=== PATIENT | male | born 1950 | race Caucasian/White ===

== ENCOUNTER 2022-02-03 09:01 | Outpatient (CLI) | payer OTHER, SELFPAY ==
[2022-02-03] VITALS (9 sets, daily range): BP systolic 128–174; BP diastolic 74–97; PULSE 40–72; RESP 11–19; TEMP 36.4; O2SAT 98–100
--- NOTE | 2022-02-03 09:07 | DI.RAD.S_ITS ---
PROCEDURE: PAIN C/T INTERLAMINAR INJECT INDICATIONS: SPINAL STENOSIS COMPARISON: [facility], MR, MR CERVICAL SPINE WITHOUT CONTRAST, 08/02/2020, 13:48. [facility], CR, XR CERVICAL SPINE 2 OR 3 VIEWS, 03/18/2021, 13:29. FINDINGS: Fluoroscopic spot filming was performed to verify placement of a spinal needle at the C6-C7 level, as labeled on the films. Appropriate location of the needle tip was confirmed by injection of iodinated contrast. IMPRESSION: No significant intraprocedural abnormality. Dictated by: Selvin Tamez M.D. on 02/03/2022 at 10:32 Approved by: Selvin Tamez M.D. on 02/03/2022 at 10:32
[2022-02-03] MEDS: MIDAZOLAM 2 MG/2 ML VIAL IV (10:43)
[2022-02-03] MEDS: DEXAMETHASONE 10 MG/ML VIAL 30 MG INJ (10:47)
[2022-02-03] MEDS: BUPIVACAINE 0.25% (PF) VIAL 2 ML INJ (10:47)
[2022-02-03] MEDS: IOPAMIDOL 15 ML VIAL 3 ML INJ (10:47)
--- NOTE | 2022-02-03 11:09 | P.PCN_ITS ---
Date/Time/Diagnoses Date of procedure: 02/03/22 Time of procedure: 11:09 Pre-procedure diagnosis: 1. CERVICAL STENOSIS, 2. CERVICAL HNP WITH UPPER EXTREMITY RADICULAR FEATURES Post-procedure diagnosis: same Procedure Notes Procedure: 1. FLUORSCOPICALLY GUIDED CONTRAST CONTROLLED INTERLAMINAR EPIDURAL STEROID INJECTION - C6/7 TL SCOTT Indications: Rommel is referred by Dr. Pacheco for the treatment of Cervical HNP with Upper Extremity Paresthesias. Physician: Skip Diaz Total Fluoroscopy time (seconds): 39 Total sedation minutes: 19 Complications: none Procedure in detail & Post-procedure care: FINDINGS Cervical Stenosis due to disc deterioration and nerve root irritation and nerve root irritation DESCRIPTION OF PROCEDURE Fluoroscopically guided, contrast-controlled C6/7 translaminar epidural steroid injection with conscious sedation. Following review of allergy and review of potential side effects and complications, including, but not necessarily limited to, infection, allergic reaction, local tissue breakdown, temporary as well as permanent nerve injury, stroke, paralysis, and possible , the patient indicated that patient understood and agreed to proceed. An informed consent document was signed by the patient, witnessed by a nurse, and placed in the patient's chart. Additionally, other treatment options including modalities, medications, and physical therapy were reviewed with the patient. After review of previous anaesthesic history and IV conscious sedation the patient was deemed safe to proceed with today?s procedure with IV conscious se dation as ASA class II designation. Safety time-out was performed to confirm patient ID, procedure to be performed and site of procedure. IV sedation was accomplished with a combination of 2mg of Versed administered by the RN after DO order, titrated to patient comfort during the course of the procedure while the patient remained responsive to all verbal commands. In the prone position, following sterile prep and drape of the cervical region, the C6/7 translaminar space was identified fluoroscopically. The skin was anesthetized via a 25-gauge 1.5-inch needle with 1% lidocaine solution. At this point, a 25-gauge, 2.5-inch short bevel spinal needle was atraumatically introduced and advanced under fluoroscopic guidance into epidural space at the C6/7 translaminar space. Depth was confirmed on lateral view. Radiological data, including multiple fluoroscopic views of the cervical spine, reveal a spinal needle at the C6/7 translaminar space. Lateral views then show placement of the needle in the epidural space. Subsequent views show contrast material flowing superiorly and inferiorly in the epidural space. DSA fluoroscopy with live contrast injection, once again, confirmed no vascular or intrathecal uptake. At this point, using loss of resistance technique with saline and air, the epidural space was entered. Following negative aspiration, injection of approximately 1.5 cc of Isovue-200 with live fluoroscopy in the AP view confirmed epidural flow in the epidural space without vascular or intrathecal uptake observed. Subsequently, a test dose of 1 cc of 1% lidocaine solution was injected and patient was observed for two minutes without signs or symptoms of complications, including abdominal pain, shortness of breath, bilateral upper or lower extremity weakness, nausea and vomiting, prior to steroid injection. At this point, 3cc or 30mg of dexamethasone was then injected without incident. The patient tolerated the procedure well without signs or symptoms of c omplications prior to being transferred to the recovery area for further monitoring, The patient was then transferred to the recovery area where they were observed for an appropriate period of time after the injection. The patient reported a VAS score of 6 prior to the procedure and a post-procedure VAS of 0. POST OP INSTRUCTIONS The patient was provided a Pain Log to continue to record their response to the target-specific procedure prior to follow-up visit with the referring provider. Additionally, specific post-injection care instructions and a contact number to our office were provided if concerns arise regarding possible complications associated with the procedure are suspected.
== END 2022-02-03 11:29 | disposition home or self-care (01) ==
LOC: RAD 09:06
PROVIDERS: Referring Provider Physical Medicine & Rehabilitation; Visit Provider Physical Medicine & Rehabilitation
DX: M48.02 Spinal stenosis, cervical region (principal); M50.123 Cervical disc disorder at C6-C7 level with radiculopathy
CPT/HCPCS: 62321; 99152; J1100; J2250; J3490

== ENCOUNTER 2022-05-12 08:55 | Outpatient (CLI) | payer OTHER, SELFPAY ==
[2022-05-12] VITALS (9 sets, daily range): BP systolic 119–160; BP diastolic 73–96; PULSE 68–75; RESP 10–20; TEMP 36.5; O2SAT 95–99
--- NOTE | 2022-05-12 08:58 | DI.RAD.S_ITS ---
PROCEDURE: PAIN C/T INTERLAMINAR INJECT INDICATIONS: Radiculopathy, cervical region COMPARISON: [facility], , PAIN C/T INTERLAMINAR INJECT, 02/03/2022, 10:46. FINDINGS: Fluoroscopic spot filming was performed to verify placement of a spinal needle at the C6-C7 level, as labeled on the films. Appropriate location of the needle tip was confirmed by injection of iodinated contrast. IMPRESSION: No significant intraprocedural abnormality. Dictated by: Selvin Tamez M.D. on 05/12/2022 at 11:19 Approved by: Selvin Tamez M.D. on 05/12/2022 at 11:20
[2022-05-12] MEDS: IOPAMIDOL 15 ML VIAL 3 ML INJ (10:16)
[2022-05-12] MEDS: MIDAZOLAM 2 MG/2 ML VIAL 4 MG IV (10:18)
[2022-05-12] MEDS: DEXAMETHASONE 10 MG/ML VIAL 30 MG INJ (10:18)
[2022-05-12] MEDS: BUPIVACAINE 0.5% (PF) 10 ML VIAL 5 ML INJ (10:19)
--- NOTE | 2022-05-12 10:37 | P.PCN_ITS ---
Date/Time/Diagnoses Date of procedure: 05/12/22 Time of procedure: 10:37 Pre-procedure diagnosis: 1. CERVICAL STENOSIS, 2. CERVICAL HNP WITH UPPER EXTREMITY RADICULAR FEATURES Post-procedure diagnosis: same Procedure Notes Procedure: 1. FLUORSCOPICALLY GUIDED CONTRAST CONTROLLED INTERLAMINAR EPIDURAL STEROID INJECTION - C6/7 TL SCOTT Indications: Rommel is referred by Taj for treatment of Cervical HNP with Upper Extremity Paresthesias. Physician: Skip Diaz Total Fluoroscopy time (seconds): 32 Total sedation minutes: 17 Complications: none Procedure in detail & Post-procedure care: FINDINGS Cervical Stenosis due to disc deterioration and nerve root irritation and nerve root irritation DESCRIPTION OF PROCEDURE Fluoroscopically guided, contrast-controlled C6/7 translaminar epidural steroid injection with conscious sedation. Following review of allergy and review of potential side effects and complications, including, but not necessarily limited to, infection, allergic reaction, local tissue breakdown, temporary as well as permanent nerve injury, stroke, paralysis, and possible , the patient indicated that patient understood and agreed to proceed. An informed consent document was signed by the patient, witnessed by a nurse, and placed in the patient's chart. Additionally, other treatment options including modalities, medications, and physical therapy were reviewed with the patient. After review of previous anaesthesic history and IV conscious sedation the patient was deemed safe to proceed with today?s procedure with IV conscious sedation as ASA class II designation. Safety time-out was performed to confirm patient ID, procedure to be performed and site of procedure. IV sedation was accomplished with a combination of 4mg of Versed administered by the RN after DO order, titrated to patient comfort during the course of the procedure while the patient remained responsive to all verbal commands. In the prone position, following sterile prep and drape of the cervical region, the C6/7 translaminar space was identified fluoroscopically. The skin was anesthetized via a 25-gauge 1.5-inch needle with 1% lidocaine solution. At this point, a 25-gauge, 2.5-inch short bevel spinal needle was atraumatically introduced and advanced under fluoroscopic guidance into epidural space at the C6/7 translaminar space. Depth was confirmed on lateral view. Radiological data, including multiple fluoroscopic views of the cervical spine, reveal a spinal needle at the C6/7 translaminar space. Lateral views then show placement of the needle in the epidural space. Subsequent views show contrast material flowing superiorly and inferiorly in the epidural space. DSA fluoroscopy with live contrast injection, once again, confirmed no vascular or intrathecal uptake. At this point, using loss of resistance technique with saline and air, the epidural space was entered. Following negative aspiration, injection of approximately 1.5 cc of Isovue-200 with live fluoroscopy in the AP view confirmed epidural flow in the epidural space without vascular or intrathecal uptake observed. Subsequently, a test dose of 1 cc of 1% lidocaine solution was injected and patient was observed for two minutes without signs or symptoms of complications, including abdominal pain, shortness of breath, bilateral upper or lower extremity weakness, nausea and vomiting, prior to steroid injection. At this point, 3cc or 30mg of dexamethasone was then injected without incident. The patient tolerated the procedure well without signs or symptoms of complic ations prior to being transferred to the recovery area for further monitoring, The patient was then transferred to the recovery area where they were observed for an appropriate period of time after the injection. The patient reported a VAS score of 6 prior to the procedure and a post-procedure VAS of 0. POST OP INSTRUCTIONS The patient was provided a Pain Log to continue to record their response to the target-specific procedure prior to follow-up visit with the referring provider. Additionally, specific post-injection care instructions and a contact number to our office were provided if concerns arise regarding possible complications associated with the procedure are suspected.
== END 2022-05-12 10:52 | disposition home or self-care (01) ==
LOC: RAD 08:58
PROVIDERS: PCP Nurse Practitioner Family; Referring Provider Physical Medicine & Rehabilitation; Visit Provider Physical Medicine & Rehabilitation
DX: M48.02 Spinal stenosis, cervical region (principal); M50.123 Cervical disc disorder at C6-C7 level with radiculopathy
CPT/HCPCS: 62321; 99152; J1100; J2250; J3490

== ENCOUNTER → 2022-08-12 14:47 | Outpatient (CLI) | payer OTHER, SELFPAY ==
--- NOTE | 2022-08-12 14:50 | DI.RAD.S_ITS ---
PROCEDURE: XR KNEE RT 3V INDICATIONS: Knee DJD TECHNIQUE: 3 views of the knee were acquired. COMPARISON: None. FINDINGS: Bones: No fractures or dislocations. No suspicious bony lesions. Tricompartmental joint space narrowing with associated osteophytosis. Soft tissues: Small joint effusion. No suspicious soft tissue calcifications. 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 Dictated by: Arsh Rivers M.D. on 08/12/2022 at 16:17 Approved by: Arsh Rivers M.D. on 08/12/2022 at 16:19
--- NOTE | 2022-08-12 14:50 | DI.RAD.S_ITS ---
PROCEDURE: XR KNEE LT 3V INDICATIONS: Knee DJD TECHNIQUE: 3 views of the knee were acquired. COMPARISON: None. FINDINGS: Bones: No fractures or dislocations. No suspicious bony lesions. Tricompartmental joint space narrowing. Osteophytic lipping of the tibiofemoral compartments and formed osteophytes about the patella. Soft tissues: Small joint effusion. No suspicious soft tissue calcifications. IMPRESSION: Mild tricompartmental osteoarthritis. Kellgren-Amisha grade 1-2. Small knee joint effusion. Dictated by: Arsh Rivers M.D. on 08/12/2022 at 16:17 Approved by: Arsh Rivers M.D. on 08/12/2022 at 16:17
== END ==
PROVIDERS: PCP Nurse Practitioner Family; Referring Provider Physical Medicine & Rehabilitation; Visit Provider Physical Medicine & Rehabilitation
DX: M17.0 Bilateral primary osteoarthritis of knee (principal); M25.461 Effusion, right knee; M25.462 Effusion, left knee; M50.10 Cervical disc disorder with radiculopathy, unspecified cervical region; L29.8 Other pruritus
CPT/HCPCS: 73562; 99214

== ENCOUNTER 2022-09-15 08:55 | Outpatient (CLI) | payer OTHER, SELFPAY ==
[2022-09-15] VITALS (8 sets, daily range): BP systolic 127–151; BP diastolic 78–88; PULSE 63–69; RESP 13–18; TEMP 35.9; O2SAT 14–99
--- NOTE | 2022-09-15 08:56 | DI.RAD.S_ITS ---
PROCEDURE: PAIN C/T INTERLAMINAR INJECT INDICATIONS: SPINAL STENOSIS COMPARISON: [facility], CR, XR CERVICAL SPINE 2 OR 3 VIEWS, 03/18/2021, 13:29. FINDINGS: Fluoroscopic spot filming was performed to verify placement of spinal needles at the C6-C7 level(s), as labeled on the films. Appropriate location(s) of the needle tip(s) was confirmed by injection of iodinated contrast. IMPRESSION: Fluoroscopy for pain management. Dictated by: Alea Howard M.D. on 09/15/2022 at 12:41 Approved by: Alea Howard M.D. on 09/15/2022 at 12:45
[2022-09-15] MEDS: MIDAZOLAM 2 MG/2 ML VIAL IV (09:45)
[2022-09-15] MEDS: BUPIVACAINE 0.25% (PF) VIAL 2 ML INJ (09:49)
[2022-09-15] MEDS: DEXAMETHASONE 10 MG/ML VIAL 30 MG INJ (09:49)
[2022-09-15] MEDS: IOPAMIDOL 15 ML VIAL 3 ML INJ (09:50)
--- NOTE | 2022-09-15 10:01 | P.PCN_ITS ---
Date/Time/Diagnoses Date of procedure: 09/15/22 Time of procedure: 10:01 Pre-procedure diagnosis: 1. CERVICAL STENOSIS, 2. CERVICAL HNP WITH UPPER EXTREMITY RADICULAR FEATURES Post-procedure diagnosis: same Procedure Notes Procedure: 1. FLUORSCOPICALLY GUIDED CONTRAST CONTROLLED INTERLAMINAR EPIDURAL STEROID INJECTION - C6/7 TL SCOTT Indications: Rommel is referred by AURELIANO Vang for treatment of Cervical HNP with Upper Extremity Paresthesias. Physician: Skip Diaz Total Fluoroscopy time (seconds): 28 Total sedation minutes: 11 Complications: none Procedure in detail & Post-procedure care: FINDINGS Cervical Stenosis due to disc deterioration and nerve root irritation and nerve root irritation DESCRIPTION OF PROCEDURE Fluoroscopically guided, contrast-controlled C6/7 translaminar epidural steroid injection with conscious sedation. Following review of allergy and review of potential side effects and complications, including, but not necessarily limited to, infection, allergic reaction, local tissue breakdown, temporary as well as permanent nerve injury, stroke, paralysis, and possible , the patient indicated that patient understood and agreed to proceed. An informed consent document was signed by the patient, witnessed by a nurse, and placed in the patient's chart. Additionally, other treatment options including modalities, medications, and physical therapy were reviewed with the patient. After review of previous anaesthesic history and IV conscious sedation the patient was deemed safe to proceed with today?s procedure with IV conscious sed ation as ASA class II designation. Safety time-out was performed to confirm patient ID, procedure to be performed and site of procedure. IV sedation was accomplished with a combination of 2mg of Versed administered by the RN after DO order, titrated to patient comfort during the course of the procedure while the patient remained responsive to all verbal commands. In the prone position, following sterile prep and drape of the cervical region, the C6/7 translaminar space was identified fluoroscopically. The skin was anesthetized via a 25-gauge 1.5-inch needle with 1% lidocaine solution. At this point, a 25-gauge, 2.5-inch short bevel spinal needle was atraumatically introduced and advanced under fluoroscopic guidance into epidural space at the C6/7 translaminar space. Depth was confirmed on lateral view. Radiological data, including multiple fluoroscopic views of the cervical spine, reveal a spinal needle at the C6/7 translaminar space. Lateral views then show placement of the needle in the epidural space. Subsequent views show contrast material flowing superiorly and inferiorly in the epidural space. DSA fluoroscopy with live contrast injection, once again, confirmed no vascular or intrathecal uptake. At this point, using loss of resistance technique with saline and air, the epidural space was entered. Following negative aspiration, injection of approximately 1.5 cc of Isovue-200 with live fluoroscopy in the AP view confirmed epidural flow in the epidural space without vascular or intrathecal uptake observed. Subsequently, a test dose of 1 cc of 1% lidocaine solution was injected and patient was observed for two minutes without signs or symptoms of complications, including abdominal pain, shortness of breath, bilateral upper or lower extremity weakness, nausea and vomiting, prior to steroid injection. At this point, 3cc or 30mg of dexamethasone was then injected without incident. The patient tolerated the procedure well without signs or symptoms of co mplications prior to being transferred to the recovery area for further monitoring, The patient was then transferred to the recovery area where they were observed for an appropriate period of time after the injection. The patient reported a VAS score of 6 prior to the procedure and a post-procedure VAS of 0. POST OP INSTRUCTIONS The patient was provided a Pain Log to continue to record their response to the target-specific procedure prior to follow-up visit with the referring provider. Additionally, specific post-injection care instructions and a contact number to our office were provided if concerns arise regarding possible complications associated with the procedure are suspected.
== END 2022-09-15 10:20 | disposition home or self-care (01) ==
PROVIDERS: PCP Nurse Practitioner Family; Referring Provider Physical Medicine & Rehabilitation; Visit Provider Physical Medicine & Rehabilitation
DX: M48.02 Spinal stenosis, cervical region (principal); M50.123 Cervical disc disorder at C6-C7 level with radiculopathy
CPT/HCPCS: 62321; 99152; J1100; J2250; J3490